=== PATIENT | female | born 1985 | race Asian ===

== ENCOUNTER 2019-06-07 08:00 | Day surgery (SDC) | payer BC ==
[~2019-06-07] VITALS: Ht 157.5 cm; Wt 49.9 kg
[2019-06-07] VITALS (7 sets, daily range): BP systolic 105–118; BP diastolic 68–79
[~2019-06-07 08:00] MED LIST: LR 1000ml 1,000 ML IVLG SCH; OMEPRAZOLE20 M3 ORAL
[2019-06-07] MEDS ORDERED: Propofol 200mg/20ml IV ONE (09:00)
[2019-06-07] MEDS ORDERED: LR 1000ml ONE (09:00)
[2019-06-07] MEDS ORDERED: Flumazenil 0.1mg/ml 5ml Inj IV ONE (09:00)
[2019-06-07] MEDS ORDERED: Lidocaine 1% MPF 10mg/ml 5ml ONE (09:00)
--- NOTE | 2019-06-07 09:12 | Short Stay Surgery H&P ---
History of Present Illness History of Present Illness Chief Complaint See attached H&P HPI Yolanda Romero is a 34 year old female who was admitted on for Dysphagia Patient History Allergies: Coded Allergies: No Known Allergies (Unverified , 06/07/19) Medication History Scheduled Omeprazole (Omeprazole), 20 MG ORAL DAILY, (Reported) Physical Exam Vital Signs Last Vital Signs Date Time Temp Pulse Resp B/P (MAP) Pulse Ox O2 Delivery O2 Flow Rate FiO2 06/07/19 08:38 Room Air 06/07/19 08:37 97.7 71 18 117/72 100 Labs Laboratory Tests Test 06/07/19 08:20 Urine HCG, Qualitative Negative (NEGATIVE) Plan Attestation Are the patient's medical conditions optimized for surgery? Vinod Canales MD Jun 07, 2019 09:12
--- NOTE | 2019-06-07 09:13 | Pre-Procedure Note/Attestation ---
Pre-Procedure Note/Attestation Complete Prior to Procedure Planned Procedure: not applicable Procedure Narrative: egd Indications for Procedure Pre-Operative Diagnosis: dysphagia Attestation I attest that I discussed the nature of the procedure; its benefits; risks and complications; and alternatives (and the risks and benefits of such alternatives ), prior to the procedure, with the patient (or the patient's legal dealer compliance representative). I attest that, if there was a reasonable possibility of needing a blood transfusion, the patient (or the patient's legal dealer compliance representative) was given the [facility] standardized written summary, pursuant to the [place] Blood Safety Act ([place] Health and Safety Code # 1645, as amended). I attest that I re-evaluated the patient just prior to the surgery and that there has been no change in the patient's H&P, except as documented below: Vinod Canales MD Jun 07, 2019 09:13
--- NOTE | 2019-06-07 09:19 | Anethesia Preoperative Eval ---
Anesthesia Pre-op PMH/ROS General Date of Evaluation: Jun 07, 2019 Time of Evaluation: 08:54 Anesthesiologist: Jovani ASA Score: ASA 1 Mallampati Score Class I : Soft palate, uvula, fauces, pillars visible Class II: Soft palate, uvula, fauces visible Class III: Soft palate, base of uvula visible Class IV: Only hard plate visible Mallampati Classification: Class I Surgeon: Ally Diagnosis: Abd Pain Surgical Procedure: EGD Anesthesia History: none Family History: no anesthesia problems Allergies: Coded Allergies: No Known Allergies (Unverified , 06/07/19) Medications: see eMAR Patient NPO?: Yes Past Medical History Pulmonary: Reports: asthma Gastrointestinal/Genitourinary: Reports: GERD Neurologic/Psychiatric: Reports: depression/anxiety Anesthesia Pre-op Phys. Exam Physician Exam Last Vital Signs Date Time Temp Pulse Resp B/P (MAP) Pulse Ox O2 Delivery O2 Flow Rate FiO2 06/07/19 08:38 Room Air 06/07/19 08:37 97.7 71 18 117/72 100 Constitutional: NAD Neurologic: CN 2-12 intact Cardiovascular: RRR Respiratory: CTA Gastrointestinal: S/NT/ND Airway Exam Mallampati Score: Class I MO: full ROM: full Teeth: intact Anesthesia Pre-op A/P Labs Urine Test Test 06/07/19 08:20 Urine HCG, Qualitative Negative (NEGATIVE) Risk Assessment & Plan Assessment: ASA 1 Plan: GA Status Change Before Surgery: No Aden Mulligan MD Jun 07, 2019 09:19
--- NOTE | 2019-06-07 09:20 | Immediate Post-Op Evaluation ---
Immediate Post-Op Evalulation Immediate Post-Op Evalulation Procedure: EGD Date of Evaluation: Jun 07, 2019 Time of Evaluation: 09:58 IV Fluids: 500 LR Blood Products: 0 Estimated Blood Loss: 3 Urinary Output: 0 Blood Pressure Systolic: 113 Blood Pressure Diastolic: 66 Pulse Rate: 67 Respiratory Rate: 16 O2 Sat by Pulse Oximetry: 100 Temperature (Fahrenheit): 97.9 Pain Score (1-10): 2 Nausea: No Vomiting: No Complications 0 Patient Status: awake, reacts, patent, vomiting Hydration Status: adequate Aden Mulligan MD Jun 07, 2019 09:20
--- NOTE | 2019-06-07 09:22 | 48 Hour Post Anesthesia Eval ---
Post Anesthesia Evaluation Procedure: EGD Date of Evaluation: Jun 07, 2019 Time of Evaluation: 12:11 Blood Pressure Systolic: 114 0: 65 Pulse Rate: 62 Respiratory Rate: 18 Temperature (Fahrenheit): 98.2 O2 Sat by Pulse Oximetry: 100 Airway: patent Nausea: No Vomiting: No Pain Intensity: 1 Hydration Status: adequate Cardiopulmonary Status: Stable Mental Status/LOC: patient returned to baseline Follow-up Care/Observations: 0 Post-Anesthesia Complications: 0 Follow-up care needed: ready to discharge Aden Mulligan MD Jun 07, 2019 09:22
[2019-06-07] MEDS ORDERED: LR 1000ml 1,000 ML IVLG SCH (10:13)
[2019-06-07] MEDS ORDERED: HYDROcodone/Acetamin 7.5/325 tab ORAL PRN (10:15)
[2019-06-07] MEDS ORDERED: Metoclopramide 10mg/2ml Inj IVP PRN (10:15)
[2019-06-07] MEDS ORDERED: Atropine Sulfate 0.4mg/ml inj IVP PRN (10:15)
[2019-06-07] MEDS ORDERED: Hydromorphone 0.5mg/0.5ml inj IVP PRN (10:15)
[2019-06-07] MEDS ORDERED: Meperidine 25mg/0.5ml Inj (FOR RIGORS ONLY) IV PRN (10:15)
[2019-06-07] MEDS ORDERED: fentaNYL 100 mcg/2 mL IV PRN (10:15)
[2019-06-07] MEDS ORDERED: oxyCODONE HCL/Acetaminophen 5/325mg ORAL PRN (10:15)
[2019-06-07] MEDS ORDERED: LORazepam Inj 2mg/ml 1ml IV PRN (10:15)
[2019-06-07] MEDS ORDERED: DiphenhydrAMINE 50mg/ml Inj IVP PRN (10:15)
[2019-06-07] MEDS ORDERED: Midazolam 2mg/2ml Inj IVP PRN (10:15)
[2019-06-07] MEDS ORDERED: HYDROcodone/Acetamin 5/325 tab ORAL PRN (10:15)
[2019-06-07] MEDS ORDERED: Labetalol 5mg/ml 20ml vial IV PRN (10:15)
[2019-06-07] MEDS ORDERED: Ketorolac 30mg Inj IV PRN ×2 (10:15)
--- NOTE | 2019-06-07 11:05 | Endoscopy Procedure Note ---
Endoscopy Procedure Note General Indication for Procedure: dysphagia Operative Findings/Diagnosis: gastric polyp Specimen: yes Pt Tolerated Procedure Well: Yes Estimated Blood Loss: none Anesthesia Anesthesiologist: Ese Anesthesia: moderate sedation Medications Medication Given: see anesthesia record Inserted Devices Implant(s) used?: No GI Core Measures 50 yrs or older w/o bx or poly: Not Applicable 10yrs. F/U recommended: Not Applicable Vinod Canales MD Jun 07, 2019 11:05
--- NOTE | 2019-06-07 11:06 | Brief Operative Note ---
Immediate Post Operative Note Operative Note Chief Complaint: dysphagia Pre-op Diagnosis: dysphagia Post-op Diagnosis: gastric polyp Surgeon: macie Anesthesiologist: Dr. Mulligan Specimen: yes Complications: yes Fluids: recorded Implant(s) used?: No Vinod Canales MD Jun 07, 2019 11:06
--- NOTE | 2019-06-07 21:00 | Procedure Note ---
DATE OF PROCEDURE: 06/07/2019 GASTROENTEROLOGY PROCEDURE REPORT PROCEDURE: Upper gastrointestinal endoscopy with biopsy. SURGEON: Vinod Canales M.D. ANESTHESIA: Please see the separate anesthesiologist notes for details. PRE-ENDOSCOPIC DIAGNOSIS: Dysphagia. POST-ENDOSCOPIC DIAGNOSES: 1. Normal cervical and thoracic esophagus with no evidence of strictures, ulcerations or other abnormalities. 2. Status post random biopsy of the mid and lower esophagus. 3. Diminutive mid gastric polyp, status post biopsy removal. DESCRIPTION OF PROCEDURE: The procedure its risks, indications, alternatives, and possible complications were explained to the patient and informed consent was obtained. The patient was sedated and a diagnostic upper endoscope was introduced through oropharynx and advanced to the duodenum. The endoscope was then gradually withdrawn and mucosa examined carefully. Examination of the mucosa revealed above findings. No pathology was identified to explain the patient's swallowing complaints. Biopsies were sent to pathology for review. The endoscope was removed. The patient was sent to recovery in good condition. COMPLICATIONS: None. RECOMMENDATIONS: 1. Followup biopsy results. 2. Outpatient followup. 3. If biopsy is negative, then the patient will be referred for esophageal motility evaluation. Vinod Canales M.D. DR: Jose Carlos JOB#: [id number] CC: NELSON
== END 2019-06-07 11:00 | disposition home or self-care (01) ==
LOC: GAS 08:00
DX: R13.10 Dysphagia, unspecified (principal); K31.7 Polyp of stomach and duodenum; F32.9 Major depressive disorder, single episode, unspecified; F41.9 Anxiety disorder, unspecified; K21.9 Gastro-esophageal reflux disease without esophagitis
CPT/HCPCS: 43239; 81025; J2250; J2704; J7120; 94003; 94150